=== PATIENT | male | born 1970 | race Asian ===

== ENCOUNTER 2024-06-10 10:36 | Emergency (ER) | payer OTHER, SELFPAY ==
[2024-06-10 11:02] VITALS: BP 193/100; PULSE 89; RESP 17; TEMP 36.6; O2SAT 99; BMI 21.6
--- NOTE | 2024-06-10 11:59 | ED_ITS ---
HPI - Male Genitourinary <Akilah Kim PA-C - Last Filed: 06/10/24 13:38> General Chief complaint: Urogenital-Male Stated complaint: Testical pain Time Seen by Provider: 06/10/24 11:11 Source: patient Mode of arrival: Family Vehicle History of Present Illness HPI Narrative: Mr. Oconnell is a pleasant 54-year-old male with a past medical history of hypertension who presents to the emergency department for intermittent testicular pain since March. Patient states since March he will occasionally get very severe pain in each testicle. Describes the pain as sudden, severe, sharp. He gets a gurgling sensation in his abdomen when the pain is present. States the pain only lasts for a few seconds and then it goes away. This pain does happen in each testicle individually however it is worse on the left side. He has not tried any medications for the pain as it only lasts for a few seconds. The pain was recently happened last night which is what prompted his ER arrival today. He is in a monogamous with a woman and states he has not been sexually active for 1 month. Denies dysuria, hematuria, penile discharge, scrotal swelling, erythema or lesions in the groin. Denies fevers, chills, chest pain, shortness of breath, vomiting, diarrhea. Related Data Allergies Allergy/AdvReac Type Severity Reaction Status Date / Time No Known Drug Allergies Allergy Verified 06/10/24 11:07 Review of Systems <Akilah Kim PA-C - Last Filed: 06/10/24 13:38> Review of Systems ROS Unobtainable: All systems reviewed & are unremarkable except as noted in HPI and below Patient History <Akilah Kim PA-C - Last Filed: 06/10/24 13:38> Social History Smoking Status: Never smoker Smoking Status: Never smoker Exam <Akilah Kim PA-C - Last Filed: 06/10/24 13:38> Narrative Exam Narrative: GENERAL: 54 year old patient appears stated age. Well-developed patient, in no acute distress. HEAD: Atraumatic. Normocephalic. NECK: Trachea midline. Cervical ROM intact. CARDIOVASCULAR: Regular rate and rhythm. RESPIRATORY: ?Nonlabored respirations. ?Speaking in clear, full sentences. ?Clear to auscultation. Breath sounds equal bilaterally. No wheezes, rales, or rhonchi. ? GASTROINTESTINAL: Abdomen soft, nontender, no rebound or guarding, normal bowel sounds. : Patient gave verbal consent for exam. Normal-appearing external augustine keshawn. Circumcised penis with no discharge. No erythema or lesions of scrotum. Patient has subjective tenderness to palpation of left testicle with no palpable mass or swelling. EXTREMITIES: No edema or joint tenderness. BACK: Nontender without deformity or crepitance. No flank tenderness. NEURO: AOx3. ?Clear speech. ?Moves all 4 extremities appropriately. SKIN: No rash or erythema of visible areas Initial Vital Signs Initial Vital Signs: Vital Signs Temperature 97.9 F 06/10/24 11:02 Pulse Rate 89 06/10/24 11:02 Respiratory Rate 17 06/10/24 11:02 Blood Pressure 193/100 H 06/10/24 11:02 Pulse Oximetry 99 06/10/24 11:02 Oxygen Delivery Method Room Air 06/10/24 11:02 <Jose Johnson MD - Last Filed: 06/19/24 12:54> Initial Vital Signs Initial Vital Signs: Vital Signs Temperature 97.9 F 06/10/24 11:02 Pulse Rate 89 06/10/24 11:02 Respiratory Rate 17 06/10/24 11:02 Blood Pressure 193/100 H 06/10/24 11:02 Pulse Oximetry 99 06/10/24 11:02 Oxygen Delivery Method Room Air 06/10/24 11:02 Course <Akilah Kim PA-C - Last Filed: 06/10/24 13:38> Orders Ordered: Discontinued Medications Ondansetron HCl (Ondansetron 4 Mg/2 Ml Inj) 4 mg IV NOW PRN PRN Reason: Nausea And Vomiting Ondansetron HCl (Ondansetron 4 Mg Odt) 4 mg SL NOW PRN PRN Reason: Nausea And Vomiting Vital Signs Vital signs: Vital Signs - 8 hr 06/10/24 11:02 Temperature 97.9 F Pulse Rate 89 Respiratory Rate 17 Blood Pressure 193/100 H Pulse Oximetry 99 Oxygen Delivery Method Room Air <Jose Johnson MD - Last Filed: 06/19/24 12:54> Orders Ordered: Discontinued Medications Ondansetron HCl (Ondansetron 4 Mg/2 Ml Inj) 4 mg IV NOW PRN PRN Reason: Nausea And Vomiting Ondansetron HCl (Ondansetron 4 Mg Odt) 4 mg SL NOW PRN PRN Reason: Nausea And Vomiting Vital Signs Vital signs: Vital Signs - 8 hr 06/10/24 11:02 Temperature 97.9 F Pulse Rate 89 Respiratory Rate 17 Blood Pressure 193/100 H Pulse Oximetry 99 Oxygen Delivery Method Room Air MDM - Male Genitourinary <Akilah Kim PA-C - Last Filed: 06/10/24 13:38> Medical Records Attestation: I reviewed the patient's medical records. Lab Data Labs: Urine Dip Bedside Urine Glucose Negative Bedside Urine Bilirubin - Negative Bedside Urine Ketone - Negative Urine Specific Nipomo 1.005 Bedside Urine Occult Blood - Negative Bedside Urine pH 6.0 Bedside Urine Protein - Negative Bedside Urine Urobilinogen - Negative Bedside Urine Nitrite - Negative Bedside Urine Leukocytes - Negative Esterase [facility] Narrative Medical decision making narrative: 54-year-old male with a past medical history of hypertension who presents to the emergency department for intermittent testicular pain since March. Differential diagnosis includes but is not limited to testicular torsion, varicocele, hydrocele, testicular mass, epididymitis, nephrolithiasis, ureterolithiasis, etc. On exam patient is in no acute distress, nontoxic appearing, vital signs within normal limits except for blood pressure elevated at 193/100. Patient denies chest pain, shortness of breath, visual disturbance. Patient has normal- appearing external genitalia with subjective tenderness of left testicle however no skin changes, signs of infection or Jem's gangrene. He has not concerned for sexually transmitted infections. We will proceed with urinalysis and testicular ultrasound. Patient declines need for pain medication at this time. Point of care urinalysis negative - no signs of infection or blood. Scrotal ultrasound reveals moderate bilateral spermatoceles. Color and pulsed Doppler demonstrate normal and symmetric arterial flow in both testicles. Patient remained pain-free throughout ER stay. Provided him with a copy of his imaging results and advise he follow up with Urology for further evaluation. Recommended Tylenol/ibuprofen if needed for pain and strict ER return precautions were discussed. Patient aware of his elevated blood pressure and advised to continue taking his prescribed antihypertensives and follow up with his PCP. Patient verbalized understanding of all information and is stable for discharge home. <Jose Johnson MD - Last Filed: 06/19/24 12:54> Lab Data Labs: Urine Dip Bedside Urine Glucose Negative Bedside Urine Bilirubin - Negative Bedside Urine Ketone - Negative Urine Specific Nipomo 1.005 Bedside Urine Occult Blood - Negative Bedside Urine pH 6.0 Bedside Urine Protein - Negative Bedside Urine Urobilinogen - Negative Bedside Urine Nitrite - Negative Bedside Urine Leukocytes - Negative Esterase Discharge Plan Departure Patient Disposition: Home Clinical Impression: Spermatocele Testicular pain Qualifiers: Laterality: bilateral Qualified Code(s): N50.811 - Right testicular pain Instructions: DI for Testicular Pain Activity Restrictions/Additional Instructions: Today we performed a urinalysis test and an ultrasound of the scrotum and testicles due to your intermittent testicular pain. Your urine test revealed no signs of infection or blood. Your ultrasound revealed spermatoceles on both sides, which is a fluid-filled cyst in the epididymis. This is the tube that stores and transferred sperm from the testicles. Please call to schedule an appointment with urologist, Dr. Rodríguez, at [facility] for further evaluation of your intermittent testicular pain. [facility]: [phone]. [address] [place] [address]. Please return to the emergency department if you develop any new or worsening symptoms such as worsening or prolonged pain, swelling or redness of the scrotum, fevers, vomiting, abdominal pain, blood in your urine, or any other concerns. Please take Ibuprofen (Motrin/Advil) or Acetaminophen (Tylenol) for pain. These are available over the counter. You may take Ibuprofen 600 mg every 8 hours with food for pain. You may also take Acetaminophen 650 mg every 4-6 hours for pain. Do not exceed 3000 mg of Tylenol a day as this can cause liver damage. Do not drink alcohol with either of these medications. Please follow up with your primary care doctor within the next 2-3 days for ER follow-up. (If you do not have a PCP you can call [phone]. ?to schedule an appointment with an [facility] Primary Care Provider) IF YOU DEVELOP ANY NEW OR WORSENING SYMPTOMS, RETURN TO THE ER! Please read the attached instructions, they highlight more specific treatments and interventions for you at home. Thank you for letting me participate in your care, Akilah Kim PA-C Referrals: Miscellaneous,MD Jono [Primary Care Provider] - Stand Alone Forms: Patient Portal/API/Survey ED Sign-out <Jose Johnson MD - Last Filed: 06/19/24 12:54> Cosign ED Attending Cosignature Attestation: I was immediately available in the department for consultation. ?This documentation has been reviewed and I agree with assessment and plan. Supervised by Jose Johnson MD
--- NOTE | 2024-06-10 12:15 | DI.US.S_ITS ---
PROCEDURE: US SCROTUM INDICATIONS: intermittent severe testicular pain; Left worse than right TECHNIQUE: Real-time scanning was performed of the scrotum and testicles, with image documentation. Color and pulse Doppler interrogation was performed of both testicles. COMPARISON: None. FINDINGS: Right: Testicle is normal in size at 3.9 cm, and homogenous in echotexture. Epididymis is normal in overall size and morphology. Moderate spermatocele. No varicoceles. Overlying scrotal skin is normal in thickness. Left: Testicle is normal in size at 4 cm, and homogeneous in echotexture. Epididymis is normal in overall size and morphology. Incidental note is made of a 6 mm left epididymal cyst. Moderate spermatocele. No varicoceles. Overlying scrotal skin is normal in thickness. Doppler: Color and pulse Doppler demonstrate normal and symmetric arterial flow in both testicles. IMPRESSION: Moderate bilateral spermatoceles. Dictated by: Kev Wakefield M.D. on 06/10/2024 at 13:11 Approved by: Kev Wakefield M.D. on 06/10/2024 at 13:15
[2024-06-10 13:41] VITALS: BP 186/89; PULSE 98; RESP 20; TEMP 37; O2SAT 100
== END 2024-06-10 13:43 | disposition home or self-care (01) ==
PROVIDERS: Emergency Provider Physician Assistant
DX: N43.40 Spermatocele of epididymis, unspecified (principal)
CPT/HCPCS: 76870; 81003; 99282; 99283